=== PATIENT | male | born 1970 | race Caucasian/White ===

== ENCOUNTER 2019-09-26 10:19 | Emergency (ER) | payer OTHER ==
[~2019-09-26] VITALS: Ht 188 cm; Wt 74.8 kg
[2019-09-26] MEDS ORDERED: KEFLEX500 M1 PO (12:01)
[2019-09-26 12:27] VITALS: BP 136/82
== END 2019-09-26 12:28 | disposition home or self-care (01) ==
LOC: M.ERS 10:19
DX: S61.300A Unspecified open wound of right index finger with damage to nail, initial encounter (principal); X58.XXXA Exposure to other specified factors, initial encounter; Y93.89 Activity, other specified; Y92.89 Other specified places as the place of occurrence of the external cause; Y99.8 Other external cause status